=== PATIENT | male | born 1985 | race Caucasian/White ===

== ENCOUNTER 2017-07-01 19:54 | Emergency (ER) | payer OTHER ==
[~2017-07-01] VITALS: Ht 180.3 cm; Wt 81.6 kg
[2017-07-01] MEDS ORDERED: LIDOCAINE 0.5% HCL 50 ML VIAL ONE (20:18)
[2017-07-01] MEDS ORDERED: LIDOCAINE 1%-EPI 1:100,000 50 ML VIAL IJ ONE (20:25)
[2017-07-01 21:05] VITALS: BP 133/71
== END 2017-07-01 21:06 | disposition home or self-care (01) ==
LOC: ER 19:58
DX: S61.511A Laceration without foreign body of right wrist, initial encounter (principal); W25.XXXA Contact with sharp glass, initial encounter; Y93.89 Activity, other specified; Y92.89 Other specified places as the place of occurrence of the external cause; Y99.8 Other external cause status
CPT/HCPCS: 12002; 99283; A4606; A6402; J3490; Z7610